=== PATIENT | male | born 1985 | race Caucasian/White ===

== ENCOUNTER 2023-06-27 19:21 | Emergency (ER) | payer MEDICARE, MEDICAID, SELFPAY ==
[2023-06-27 19:27] VITALS: BP 150/95; PULSE 81; RESP 16; TEMP 36.7; O2SAT 95
--- NOTE | 2023-06-27 19:33 | ED_ITS ---
HPI - Chest Pain 2 General: Chief Complaint: Chest Pain Stated Complaint: cp Time Seen by Provider: 06/27/23 19:27 Source: patient and other (care staff) Mode of arrival: ambulatory Limitations: no limitations History of Present Illness: Patient is a 37-year-old male here with his care staff for complaints of chest pain that began early this morning. He states pain has been constant since onset. History is limited due to patient's intellectual disabilities. He denies alleviating or worsening factors to his discomfort. When asked about previous episodes of chest pain he tells me that he cannot remember . No known cardiac or pulmonary history. He does smoke daily. Denies cough or shortness of breath. No difficulty breathing. No recent illness. No fevers. MD complaint: chest pain Onset (ago): hour(s) Timing of current episode: constant Prior episodes: No (states he cannot remember ) Onset: during rest Pain location: left chest Pain radiation: none Severity: mild Quality: sharp Relieving factors: nothing Exacerbating factors: nothing Associated symptoms: Deny abdominal pain, dyspnea, fever(s), nausea, palpitations, syncope or vomiting Treatment prior to arrival: none Risk Factors: Coronary artery disease risk factors: none Thoracic aortic dissection risk factors: none Review of Systems 2 Const: Denies: fever(s), chills, body aches, fatigue or malaise Card: Reports: chest pain; Denies: palpitations, irregular heart rhythm, edema, swelling of feet/ankles, lightheadedness, syncope, pre-syncope, dyspnea on exertion, orthopnea, leg pain with exertion or acrocyanosis Resp: Reports: pain on inspiration; Denies: dyspnea, productive cough, non-productive cough, wheezing, stridor, change in phlegm color, hemoptysis or chest congestion GI: Denies: abdominal pain, nausea, vomiting or change in bowel habits Musc: Denies: neck pain, back pain, extremity pain or joint pain Skin/Breast: Denies: rash Neuro: Denies: headache(s) or dizziness Physical Exam 2 Const: COMMON NORMALS: no acute distress, average body habitus, patient oriented x3, alert and well nourished EXAM LIMITATIONS: other limitations (intellectual disability) GENERAL APPEARANCE: cooperative O RIENTATION/CONSCIOUSNESS: Yes awake, Yes oriented to person, Yes oriented to place and Yes oriented to time HENMT: COMMON NORMALS: normocephalic and atraumatic HEAD & SCALP: normal to inspection, normocephalic and atraumatic Neck/C-Spine: COMMON NORMALS: no JVD Chest: COMMONS NORMALS: normal inspection of the chest OTHER: reports one small quarter sized area to L anterior chest wall that he states was tender when I pushed on it Resp: COMMON NORMALS: normal respiratory effort and clear to auscultation bilaterally AUSCULTATION: clear to auscultation bilaterally Cardio: COMMON NORMALS: no JVD, regular rate and regular rhythm RATE: r egular rate RHYTHM: regular rhythm GI: COMMON NORMALS: Normal to inspection, nondistended, normoactive bowel sounds present, Soft to palpation, non-tender and no masses PALPATION: Yes Soft to palpation Extremity: COMMON NORMALS: capillary refill normal, no clubbing, cyanosis or edema, no calf tenderness and no pedal edema Neuro: COMMON NORMALS: patient oriented x3, moves all extremities, no focal motor deficits, no sensory deficits noted and gait normal S ENSORIUM/ORIENTATION: Yes alert, Yes oriented to person, Yes oriented to place and Yes oriented to time Skin: COMMON NORMALS: no rashes or lesions noted GENERAL SKIN EXAM: no rashes or lesions noted Course 2 Vital Signs: Vital signs: Vital Signs Temperature 98.1 F 06/27/23 19:27 Pulse Rate 81 06/27/23 19:27 Respiratory Rate 16 06/27/23 19:27 Blood Pressure 150/95 06/27/23 19:27 Pulse Oximetry 95 06/27/23 19:27 Oxygen Delivery Me thod Room Air 06/27/23 19:27 MDM - Chest Pain Medical Decision Making Patient's cardiac workup is unremarkable. Due to length of symptoms he does not require a 2-hour troponin. Patient appears in no acute distress. Vital signs are stable. He is stable for discharge from the ER with recommendations to follow-up with primary care provider. Return ED precautions given. Medical Records I reviewed the patient's medical records. Lab Data I reviewed the patient's lab results. 06/27/23 20:08 06/27/23 20:08 Radiology Impressions Chest X-Ray 06/27/23 19:40 IMPRESSION: 1. No acute cardiopulmonary abnormality. Laboratory Results WBC 8.10 10^3/uL (3.29-11.43) 06/27/23 20:08 RBC 5.05 10^6/uL (3.85-5.65) 06/27/23 20:08 Hgb 15.00 g/dL (11.27-16.99) 06/27/23 20:08 Hct 43.1 % (37-53) 06/27/23 20:08 MCV 85.3 fl (82-101) 06/27/23 20:08 MCH 29.7 pg (27-33) 06/27/23 20:08 MCHC 34.8 g/dL (30-55) 06/27/23 20:08 RDW 12.2 % (12.1-15.1) 06/27/23 20:08 Plt Count 248 10^3/cmm (157-399) 06/27/23 20:08 MPV 9.9 fL (7.4-10.4) 06/27/23 20:08 Neut % (Auto) 50.7 % 06/27/23 20:08 Lymph % (Auto) 37.3 % 06/27/23 20:08 Branch % (Auto) 7.2 % 06/27/23 20:08 Eos % (Auto) 4.3 % 06/27/23 20:08 Baso % (Auto) 0.4 % 06/27/23 20:08 Neut # (Auto) 4.11 10^3/uL (1.8-7.7) 06/27/23 20:08 Lymph # (Auto) 3.0 10^3/uL (0.8-4.8) 06/27/23 20:08 Branch # (Auto) 0.6 10^3/uL (0.2-0.9) 06/27/23 20:08 Eos # (Auto) 0.4 10^3/uL (0.0-0.8) 06/27/23 20:08 Baso # (Auto) 0.0 10^3/uL (0.0-0.1) 06/27/23 20:08 Nucleated RBC % (auto) 0 % 06/27/23 20:08 Nucleated RBCs # 0.0 /100WBC 06/27/23 20:08 Sodium 140 mmol/L (136-145) 06/27/23 20:08 Potassium 3.9 mmol/L (3.5-5.1) 06/27/23 20:08 Chloride 106 mmol/L (98-107) 06/27/23 20:08 Carbon Dioxide 24 mmol/L (22-29) 06/27/23 20:08 Anion Gap 13.9 (5-19) 06/27/23 20:08 BUN 11 mg/dL (6-20) 06/27/23 20:08 Creatinine 0.6 mg/dL (0.7-1.2) L 06/27/23 20:08 GFR Calculation 151.6 mL/min (90-130) H 06/27/23 20:08 Glucose 84 mg/dL (65-115) 06/27/23 20:08 Calculated Osmolality 289 mOsm/kg (285-295) 06/27/23 20:08 Calcium 9.4 mg/dL (8.5-10.5) 06/27/23 20:08 Total Bilirubin 0.2 mg/dL (0.15-1.2) 06/27/23 20:08 AST 16 U/L (0-40) 06/27/23 20:08 ALT 19 U/L (0-41) 06/27/23 20:08 Alkaline Phosphatase 104 U/L (40-130) 06/27/23 20:08 Troponin T Baseline < 6 ng/L (0-15) 06/27/23 20:08 Total Protein 7.2 g/dL (6.6-8.7) 06/27/23 20:08 Albumin 4.8 g/dL (3.5-5.2) 06/27/23 20:08 Globulin 2.4 g/dL (1.3-4.6) 06/27/23 20:08 All radiology interpretation(s) finalized by discharge EKG Data EKG 1: EKG interpretation date: 06/27/23 EKG interpretation time: 19:23 Prior EKG tracings: not available for review Interpretation: Sinus rhythm Rate [address] elevation or depression changes noted Discharge Plan Discharge Patient Disposition: Home Clinical Impression: Non-cardiac chest pain Condition: Stable Discharge Orders: Discharge ED (Routine); Ordered 06/27/23 Ordered By: Naty Carson Patient Instructions: Chest Pain - Chest Wall, Noncardiac Chest Pain (ED) Coding Level of Care Code 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
--- NOTE | 2023-06-27 19:40 | ECG_ITS ---
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 Measurements Intervals [place] Rate: 78 P: 32 UT: 149 QRS: 13 QRSD: 96 T: 58 QT: 347 QTc: 396 Interpretive Statements SINUS RHYTHM No previous ECG available for comparison Electronically Signed On 06-27-2023 23:58:11 CDT by Mehdi Moore M.D. [email or web address]
--- NOTE | 2023-06-27 19:40 | XRR_ITS ---
PROCEDURE INFORMATION: Exam: XR Chest Exam date and time: 06/27/2023 7:44 PM Age: 37 years old Clinical indication: Chest wall pain; Additional info: Chest pain TECHNIQUE: Imaging protocol: Radiologic exam of the chest. Views: 1 view. COMPARISON: No relevant prior studies available. FINDINGS: Lungs: No focal consolidation. Pleural spaces: No evidence of pneumothorax. No evidence of pleural effusion. Heart/Mediastinum: Cardiomediastinal silhouette is within normal limits. Bones/joints: No evidence of acute osseous abnormality. XR/XR chest 1V portable [id number] IMPRESSION: 1. No acute cardiopulmonary abnormality.
[2023-06-27 20:13] LABS: Basophils % 0.4 %; Eosinophils # 0.4 10^3/uL (0.0-0.8); Eosinophils % 4.3 %; Hematocrit 43.1 % (37-53); Lymphocytes % 37.3 %; Mean Corpuscular HGB Conc 34.8 g/dL (30-55); Mean Corpuscular Hemoglobin 29.7 pg (27-33); Mean Corpuscular Volume 85.3 fl (82-101); Mean Platelet Volume 9.9 fL (7.4-10.4); Monocytes # 0.6 10^3/uL (0.2-0.9); Monocytes % 7.2 %; Neutrophils # 4.11 10^3/uL (1.8-7.7); Neutrophils % 50.7 %; Nucleated Red Blood Cells % 0 %; Platelet Count 248 10^3/cmm (157-399); Red Blood Count 5.05 10^6/uL (3.85-5.65); Red Cell Distribution Width 12.2 % (12.1-15.1)
[2023-06-27 20:33] LABS: Alanine Aminotransferase 19 U/L (0-41); Albumin Level 4.8 g/dL (3.5-5.2); Alkaline Phosphatase 104 U/L (40-130); Anion Gap 13.9 (5-19); Aspartate Amino Transferase 16 U/L (0-40); Blood Urea Nitrogen 11 mg/dL (6-20); Calcium 9.4 mg/dL (8.5-10.5); Carbon Dioxide 24 mmol/L (22-29); Chloride 106 mmol/L (98-107); Globulin 2.4 g/dL (1.3-4.6); Glomerular Filtration Rate 151.6 mL/min (90-130); Glucose 84 mg/dL (65-115); Osmolality Calculated 289 mOsm/kg (285-295); Potassium 3.9 mmol/L (3.5-5.1); Sodium 140 mmol/L (136-145); Total Bilirubin 0.2 mg/dL (0.15-1.2); Total Protein 7.2 g/dL (6.6-8.7)
[2023-06-27 20:38] LABS: Troponin(5th) Baseline < 6 ng/L (0-15)
[2023-06-27 20:59] VITALS: BP 150/95; PULSE 81; RESP 16; TEMP 36.7; O2SAT 95
== END 2023-06-27 21:00 | disposition home or self-care (01) ==
PROVIDERS: Emergency Provider Physician Assistant
DX: R07.89 Other chest pain (principal)
CPT/HCPCS: 36415; 71045; 80053; 84484; 85025; 93005; 99285

== ENCOUNTER → 2023-07-31 13:22 | Outpatient (BNVA) | payer MEDICARE, MEDICAID, SELFPAY | PROVIDERS: Referring Provider Nurse Practitioner Family; Visit Provider Internal Medicine Cardiovascular Disease | DX: R00.2 Palpitations (principal); I49.1 Atrial premature depolarization; I49.3 Ventricular premature depolarization | CPT/HCPCS: 93225 ==

== ENCOUNTER 2025-01-30 10:14 | Outpatient (CLI) | payer MEDICARE, MEDICAID, SELFPAY ==
--- NOTE | 2025-01-30 10:28 | US_ITS ---
WS: [id number] ULTRASOUND SOFT TISSUES overlying the chin. HISTORY: LOCALIZED SWELLING,MASS LUMP,NECK COMPARISON: None available. TECHNIQUE: 2-D and color Doppler imaging is submitted. Ultrasound is directed to the area of concern. No obvious mass identified. No fluid collection or skin thickening. US/US soft tissue head neck [id number] IMPRESSION: No soft tissue abnormality identified by ultrasound.
== END 2025-01-30 10:15 | disposition home or self-care (01) ==
LOC: RAD 10:17
PROVIDERS: PCP Nurse Practitioner Family; Visit Provider Nurse Practitioner Family
DX: R22.1 Localized swelling, mass and lump, neck (principal)
CPT/HCPCS: 76536